=== PATIENT | female | born 2000 | race Hispanic/Latino ===

== ENCOUNTER 2023-03-31 01:37 | Emergency (ER) | payer OTHER ==
[2023-03-31] MEDS ORDERED: Bupivacaine 0.25% 10 ML VIAL ONE (03:39)
[2023-03-31] MEDS ORDERED: Boostrix 0.5 ML (Tdap) VIAL (>/=7 yrs of age) ONE (03:54)
== END 2023-03-31 04:11 | disposition home or self-care (01) ==
LOC: ERS 01:37
DX: S91.312A Laceration without foreign body, left foot, initial encounter (principal); Z23 Encounter for immunization; W25.XXXA Contact with sharp glass, initial encounter
CPT/HCPCS: 12001; 90471; 90715; S0020